=== PATIENT | male | born 1955 | race Caucasian/White ===

== ENCOUNTER 2019-02-07 11:56 | Day surgery (SDC) | payer MEDICARE, OTHER ==
[~2019-02-07] VITALS: Ht 180.3 cm; Wt 92.2 kg
[~2019-02-07 11:56] MED LIST: COENZYME Q-1030 MG PO; Daily Multiple1 EACH PO; ETOD500 PO; EUTHYROX150 MCG PO; FISH OIL 1,0001 EAC1 PO; LEVSOD100 PO; LEVSOD112 PO; SIMV80 PO; Simvastatin40 MG PO
== END 2019-02-07 14:25 | disposition home or self-care (01) ==
LOC: ORSCSDS 11:56
PROVIDERS: Internal Medicine Gastroenterology
PROC: 0DBP8ZX Excision of Rectum, Via Natural or Artificial Opening Endoscopic, Diagnostic (ICD-10-PCS; principal; 2019-02-07 13:45)
PROC: 0DBC8ZX Excision of Ileocecal Valve, Via Natural or Artificial Opening Endoscopic, Diagnostic (ICD-10-PCS; principal; 2019-02-07 13:45)
DX: Z12.11 Encounter for screening for malignant neoplasm of colon (principal); D12.0 Benign neoplasm of cecum; D12.8 Benign neoplasm of rectum; K57.30 Diverticulosis of large intestine without perforation or abscess without bleeding; K64.8 Other hemorrhoids; E07.9 Disorder of thyroid, unspecified; Z87.891 Personal history of nicotine dependence; Z79.899 Other long term (current) drug therapy
CPT/HCPCS: 88305; J2704; J7120

== ENCOUNTER → 2023-02-10 | Outpatient (CLI) | payer OTHER ==
[2023-02-14 16:09] LABS: FATS, NEUTRAL Normal (.); FATS, TOTAL Increased (.)
== END ==
LOC: LAB 15:10 → LAB SHORT 15:10
PROVIDERS: Internal Medicine Gastroenterology
DX: R19.4 Change in bowel habit (principal)
CPT/HCPCS: 82653; 82705; 83993

== ENCOUNTER → 2023-02-11 | Outpatient (CLI) | payer OTHER ==
[2023-02-11 20:47] LABS: Campylobacter Sp Not Detected (NOT DETECT); E. Coli O157 Not Detected (NOT DETECT); Enteroaggregative E. coli-EAEC Not Detected (NOT DETECT); Enteropathogenic E. coli-EPEC Not Detected (NOT DETECT); Enterotoxigenic E. coli-ETEC Not Detected (NOT DETECT); Plesiomonas Shigelloides Not Detected (NOT DETECT); Salmonella Sp Not Detected (NOT DETECT); Shiga Toxin-prod E. coli-STEC Not Detected (NOT DETECT); Vibrio Cholerae Not Detected (NOT DETECT); Vibrio Sp Not Detected (NOT DETECT); Yersinia Enterocolitica Not Detected (NOT DETECT)
[2023-02-11 20:48] LABS: Adenovirus F 40/41 Not Detected (NOT DETECT); Astrovirus Not Detected (NOT DETECT); Cryptosporidium Not Detected (NOT DETECT); Cyclospora Cayetanensis Not Detected (NOT DETECT); Entamoeba Histolytica Not Detected (NOT DETECT); Giardia Lamblia Not Detected (NOT DETECT); Norovirus GI/GII Not Detected (NOT DETECT); Rotavirus A Not Detected (NOT DETECT); Sapovirus Not Detected (NOT DETECT); Shigella/Enteroin E. coli-EIEC Not Detected (NOT DETECT)
== END | disposition home or self-care (01) ==
LOC: LAB 14:55 → LAB SHORT 14:55
PROVIDERS: Internal Medicine Gastroenterology
DX: R19.4 Change in bowel habit (principal)
CPT/HCPCS: 87507

== ENCOUNTER 2023-02-16 11:48 | Day surgery (SDC) | payer OTHER ==
[~2023-02-16] VITALS: Ht 180.3 cm; Wt 89.5 kg
[2023-02-16 14:42] VITALS: BP 109/82
== END 2023-02-16 14:30 | disposition home or self-care (01) ==
LOC: ORSCSDS 11:48
DX: R19.4 Change in bowel habit (principal); Z86.010 Personal history of colon polyps; D12.3 Benign neoplasm of transverse colon; D12.4 Benign neoplasm of descending colon; K57.30 Diverticulosis of large intestine without perforation or abscess without bleeding; Z87.891 Personal history of nicotine dependence; E03.9 Hypothyroidism, unspecified; Z79.899 Other long term (current) drug therapy
CPT/HCPCS: 88305; J2704; J7120

== ENCOUNTER → 2023-02-19 | Outpatient (CLI) | payer OTHER | LOC: LAB 14:28 → LAB SHORT 14:28 → LAB FUT 02-17 16:10 | DX: R19.4 Change in bowel habit (principal) | CPT/HCPCS: 89055 ==

== ENCOUNTER → 2023-03-08 | Outpatient (CLI) | payer OTHER | LOC: LAB 08:25 → LAB SHORT 08:25 → LAB FUT 02-11 08:35 | PROVIDERS: Internal Medicine Gastroenterology | DX: R19.4 Change in bowel habit (principal) | CPT/HCPCS: 82710 ==